=== PATIENT | male | born 1990 | race Native Hawaiian/Other Pacific Islander ===

== ENCOUNTER 2017-07-21 00:08 | Observation (INO) | payer OTHER ==
--- NOTE | 2017-07-21 00:33 | C.PDOC ---
History Of Present Illness 27 year old male presents to the ED with complaints of intermittent left sided pinching chest pain radiating to the left arm for four days. Pain is exacerbated slightly by movement. Patient describes initial onset was while driving and pain lasted for three hours. Other episodes since have been shorter except tonight, where pain has persisted for more than 5 hours, which prompted visit. He states his father at 32 years old of a heart attack and his father's sister at 45 years old also from heart attack. He denies previous episodes, sweats, nausea, vomiting, fever, or recent heavy lifting. Time Seen by Provider: 07/21/17 00:17 Chief Complaint (Nursing): Chest Pain History Per: Patient History/Exam Limitations: no limitations Onset/Duration Of Symptoms: Days (4 days ), Intermittent Episodes Current Symptoms Are (Timing): Still Present Quality: Other (pinching ) Associated Symptoms: denies: Nausea, Diaphoresis Modifying Factors: None Exacerbating Factors: Movement Alleviating Factors: None Recent travel outside of the [place]: No Past Medical History Reviewed: Historical Data, Nursing Documentation, Vital Signs Vital Signs: Last Vital Signs Temp 98.2 F 07/21/17 01:29 Pulse 93 H 07/21/17 02:01 Resp 20 07/21/17 02:01 BP 117/87 07/21/17 02:01 Pulse Ox 100 07/21/17 02:01 Family History: States: Unknown Family Hx - Social History Hx Alcohol Use: No Hx Substance Use: No - Immunization History Hx Tetanus Toxoid Vaccination: No Hx Influenza Vaccination: No Hx Pneumococcal Vaccination: No Review Of Systems Constitutional: Negative for: Fever, Chills Cardiovascular: Positive for: Chest Pain Respiratory: Negative for: Cough, Shortness of Breath Gastrointestinal: Negative for: Nausea, Vomiting, Abdominal Pain Musculoskeletal: Positive for: Arm Pain (left arm pain ) Neurological: Negative for: Weakness, Numbness Physical Exam - Physical Exam Appears: Non-toxic, No Acute Distress Skin: Warm, Dry Head: Atraumatic, Normacephalic Eye(s): bilateral: Normal Inspection, PERRL, EOMI Oral Mucosa: Moist Neck: Normal ROM, Supple Chest: Symmetrical, No Deformity, Tenderness (reproducible chest tenderness from left upper chest near nipple and lateral aspect toward axilla ) Cardiovascular: Rhythm Regular, No Murmur Respiratory: Normal Breath Sounds, No Rales, No Rhonchi, No Wheezing Gastrointestinal/Abdominal: Soft, No Tenderness, No Distention, No Guarding, No Rebound Extremity: Normal ROM, No Tenderness, No Pedal Edema, No Calf Tenderness, Capillary Refill (good capillary refill, less than two seconds ), No Deformity, No Swelling Neurological/Psych: Oriented x3, Normal Motor, Normal Sensation Gait: Steady ED Course And Treatment - Laboratory Results Result Diagrams: 07/21/17 01:05 07/21/17 01:05 O2 Sat by Pulse Oximetry: 100 (RA) Progress Note: EKG, CXR, and labs were ordered. Patient was given aspirin. Medical Decision Making Medical Decision Making: pt with intermittent left chest pain x 4 days, worse tonight, with family hx of early cardiac from mi (father 32). [address] Flores, will put on his service to [facility]. Disposition Discussed With : Kg Flores Doctor Will See Patient In The: Hospital - Disposition Disposition Time: 02:08 Condition: STABLE Forms: [facility] (Spanish) - Clinical Impression Clinical Impression: Chest pain - PA / RECREATION THERAPIST / Resident Statement MD/DO has reviewed & agrees with the documentation as recorded. - Scribe Statement The provider has reviewed the documentation as recorded by the Scribe Nikole Higuera All medical record entries made by the Scribe were at my direction and personally dictated by me. I have reviewed the chart and agree that the record accurately reflects my personal performance of the history, physical exam, medical decision making, and the department course for this patient. I have also personally directed, reviewed, and agree with the discharge instructions and disposition.
[2017-07-21] MEDS ORDERED: Aspirin 325 mg EC Tablets PO STA (00:49)
[2017-07-21] MEDS ORDERED: Aspirin 325 mg EC Tablets PO ONE (00:58)
[2017-07-21 01:16] LABS: CHLORIDE 101 mmol/L (98-107); POTASSIUM 3.9 mmol/L (3.6-5.2); SODIUM 141 mmol/L (132-148)
[2017-07-21 01:18] LABS: BILIRUBIN,TOTAL 0.6 mg/dL (0.2-1.3); GFR AFRICAN-AMERICAN > 60
[2017-07-21 01:19] LABS: ALB/GLOB RATIO 1.4 (1.0-2.1); ALKALINE PHOSPHATASE 57 U/L (38-126); ALT/SGPT 43 U/L (21-72); AST/SGOT 26 U/L (17-59); BLOOD UREA NITROGEN 14 mg/dL (9-20); CARBON DIOXIDE 23 mmol/L (22-30); GLUCOSE,RANDOM 86 mg/dL (75-110); TOTAL PROTEIN 7.9 g/dL (6.3-8.3)
[2017-07-21 01:20] LABS: CALCIUM 9.5 mg/dl (8.6-10.4)
[2017-07-21 01:21] LABS: BASO # 0.1 K/uL (0.0-0.2); BASO % 0.6 % (0.0-2.0); EOS # 0.3 K/uL (0.0-0.7); EOS % 2.7 % (0.0-4.0); LYMPH # 2.4 K/uL (1.0-4.3); LYMPH % 25.1 % (20.0-40.0); MEAN CELL VOLUME 81.8 fL (80.0-94.0); MEAN CORPUSCULAR HEMOGLOBIN 28.1 pg (27.0-31.0); MEAN CORPUSCULAR HGB CONC 34.3 g/dL (33.0-37.0); MEAN PLATELET VOLUME 8.8 fL (7.2-11.7); MONO # 0.6 K/uL (0.0-0.8); MONO % 6.1 % (0.0-10.0); RED CELL DISTRIBUTION WIDTH 13.4 % (11.5-14.5); WHITE BLOOD COUNT 9.5 K/uL (4.8-10.8)
--- NOTE | 2017-07-21 03:36 | CP.PCM.HP ---
<Yannick Kumari - Last Filed: 07/21/17 06:50> History of Present Illness - History of Present Illness History of Present Illness: PGY-1 H&P for Dr. Flores CC: Chest Pain This is a 27 year old male with no significant PMHx who presents complaining of left sided chest pain. Patient states that it began on Saturday while he was driving. It is intermittent but as of this morning, he has woken up with worsening chest pain. This prompted him to come in for evaluation. Patient states that the pain is described as a pressure like sensation that radiates to his left arm. Pain is about an 8/10 but reduced to a 5/10 with aspirin and nitroglycerin given in the ED. Patient states that meals and positional changes do not affect his pain. Patient also complaining of palpitations. PMHx: denies PSHx: denies Allergies: "skin allergies" Social: Denies tobacco, drugs, alcohol. 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 Family Hx: Father of ND at age 31. Aunt of ND at age 45. PMD: none Present on Admission - Present on Admission Any Indicators Present on Admission: No Review of Systems - Constitutional Constitutional: absent: Chills, Fever - EENT Eyes: absent: Change in Vision Nose/Mouth/Throat: absent: Nasal Congestion - Cardiovascular Cardiovascular: Chest Pain. absent: Diaphoresis, Dyspnea - Respiratory Respiratory: absent: Cough, Dyspnea, Wheezing - Gastrointestinal Gastrointestinal: absent: Abdominal Pain, Constipation, Diarrhea, Nausea, Vomiting - Genitourinary Genitourinary: absent: Dysuria, Hematuria - Musculoskeletal Musculoskeletal: absent: Back Pain - Neurological Neurological: absent: Dizziness, Headaches, Weakness - Psychiatric Psychiatric: Other (denies stressors) - Endocrine Endocrine: Palpitations Past Patient History - Past Social History Smoking Status: Never Smoked - PSYCHIATRIC Hx Substance Use: No - SURGICAL HISTORY Hx Surgeries: No Meds Allergies/Adverse Reactions: Allergies Allergy/AdvReac Type Severity Reaction Status Date / Time No Known Allergies Allergy Unverified 07/21/17 00:20 Physical Exam - Constitutional Appears: No Acute Distress - Head Exam Head Exam: ATRAUMATIC, NORMOCEPHALIC - Eye Exam Eye Exam: EOMI, PERRL - ENT Exam ENT Exam: Mucous Membranes Moist - Respiratory Exam Respiratory Exam: Clear to Auscultation Bilateral. absent: Rales, Rhonchi, Wheezes - Cardiovascular Exam Cardiovascular Exam: REGULAR RHYTHM, +S1, +S2 - GI/Abdominal Exam GI & Abdominal Exam: Normal Bowel Sounds, Soft. absent: Tenderness - Extremities Exam Extremities exam: Negative for: calf tenderness, pedal edema - Neurological Exam Neurological exam: Alert, CN II-XII Intact, Oriented x3 - Psychiatric Exam Psychiatric exam: Anxious - Skin Skin Exam: Dry, Intact, Normal Color, Warm Results - Vital Signs Recent Vital Signs: Last Vital Signs Temp 98.2 F 07/21/17 01:29 Pulse 81 07/21/17 02:29 Resp 18 07/21/17 02:29 BP 115/77 07/21/17 02:29 Pulse Ox 100 07/21/17 02:29 - Labs Result Diagrams: 07/21/17 01:05 07/21/17 01:05 Labs: Laboratory Results - last 24 hr 07/21/17 07/21/17 01:05 01:05 WBC 9.5 RBC 5.50 Hgb 15.5 Hct 45.0 MCV 81.8 MCH 28.1 MCHC 34.3 RDW 13.4 Plt Count 219 MPV 8.8 Neut % (Auto) 65.5 Lymph % (Auto) 25.1 [place] % (Auto) 6.1 Eos % (Auto) 2.7 Baso % (Auto) 0.6 Neut # 6.2 Lymph # 2.4 [place] # 0.6 Eos # 0.3 Baso # 0.1 Sodium 141 Potassium 3.9 Chloride 101 Carbon Dioxide 23 Anion Gap 20 BUN 14 Creatinine 0.7 L Est GFR ( Amer) > 60 Est GFR (Non-Af Amer) > 60 Random Glucose 86 Calcium 9.5 Total Bilirubin 0.6 AST 26 ALT 43 Alkaline Phosphatase 57 Troponin I < 0.0120 Total Protein 7.9 Albumin 4.7 Globulin 3.3 Albumin/Globulin Ratio 1.4 Assessment & Plan - Assessment and Plan (Free Text) Plan: Chest pain r/o ACS EKG and NINI negative for acute ND but EKG with diffuse RSR' complexes indicating RBB F/u EKG and NINI x2 ASA 325 and nitroglycein given in ED with questionable relief in pain ASA 81 mg PO daily Prophylactic Measure Pepcid 20 mg PO BID SCDs <Kg Flores - Last Filed: 07/21/17 19:11> Results - Vital Signs Recent Vital Signs: Last Vital Signs Temp 98.1 F 07/21/17 15:24 Pulse 71 07/21/17 15:24 Resp 19 07/21/17 15:24 BP 107/72 07/21/17 15:24 Pulse Ox 97 07/21/17 15:24 - Labs Result Diagrams: 07/21/17 01:05 07/21/17 01:05 Labs: Laboratory Results - last 24 hr 07/21/17 07/21/17 07/21/17 01:05 01:05 01:05 WBC 9.5 RBC 5.50 Hgb 15.5 Hct 45.0 MCV 81.8 MCH 28.1 MCHC 34.3 RDW 13.4 Plt Count 219 MPV 8.8 Neut % (Auto) 65.5 Lymph % (Auto) 25.1 [place] % (Auto) 6.1 Eos % (Auto) 2.7 Baso % (Auto) 0.6 Neut # 6.2 Lymph # 2.4 [place] # 0.6 Eos # 0.3 Baso # 0.1 ESR 1 Sodium 141 Potassium 3.9 Chloride 101 Carbon Dioxide 23 Anion Gap 20 BUN 14 Creatinine 0.7 L Est GFR ( Amer) > 60 Est GFR (Non-Af Amer) > 60 Random Glucose 86 Calcium 9.5 Total Bilirubin 0.6 AST 26 ALT 43 Alkaline Phosphatase 57 Total Creatine Kinase CK-MB (Mass) Troponin I < 0.0120 Troponin I, Quant C-React Prot High Sens Total Protein 7.9 Albumin 4.7 Globulin 3.3 Albumin/Globulin Ratio 1.4 Triglycerides Cholesterol LDL Cholesterol Direct HDL Cholesterol Free T4 TSH 3rd Generation Urine Opiates Screen Urine Methadone Screen Ur Barbiturates Screen Ur Phencyclidine Scrn Ur Amphetamines Screen U Benzodiazepines Scrn U Oth Cocaine Metabols U Cannabinoids Screen 07/21/17 07/21/17 07/21/17 03:36 05:49 05:49 WBC RBC Hgb Hct MCV MCH MCHC RDW Plt Count MPV Neut % (Auto) Lymph % (Auto) [place] % (Auto) Eos % (Auto) Baso % (Auto) Neut # Lymph # [place] # Eos # Baso # ESR Sodium Potassium Chloride Carbon Dioxide Anion Gap BUN Creatinine Est GFR ( Amer) Est GFR (Non-Af Amer) Random Glucose Calcium Total Bilirubin AST ALT Alkaline Phosphatase Total Creatine Kinase CK-MB (Mass) Troponin I Troponin I, Quant C-React Prot High Sens Total Protein Albumin Globulin Albumin/Globulin Ratio Triglycerides Cholesterol LDL Cholesterol Direct HDL Cholesterol Free T4 1.33 TSH 3rd Generation 3.81 Urine Opiates Screen Negative Urine Methadone Screen Negative Ur Barbiturates Screen Negative Ur Phencyclidine Scrn Negative Ur Amphetamines Screen Negative U Benzodiazepines Scrn Negative U Oth Cocaine Metabols Negative U Cannabinoids Screen Negative 07/21/17 07/21/17 07/21/17 06:30 13:35 14:00 WBC RBC Hgb Hct MCV MCH MCHC RDW Plt Count MPV Neut % (Auto) Lymph % (Auto) [place] % (Auto) Eos % (Auto) Baso % (Auto) Neut # Lymph # [place] # Eos # Baso # ESR Sodium Potassium Chloride Carbon Dioxide Anion Gap BUN Creatinine Est GFR ( Amer) Est GFR (Non-Af Amer) Random Glucose Calcium Total Bilirubin AST ALT Alkaline Phosphatase Total Creatine Kinase 83 73 CK-MB (Mass) 0.47 0.38 Troponin I Troponin I, Quant < 0.0120 < 0.0120 C-React Prot High Sens 0.51 L Total Protein Albumin Globulin Albumin/Globulin Ratio Triglycerides 50 Cholesterol 165 LDL Cholesterol Direct 116 HDL Cholesterol 49 Free T4 TSH 3rd Generation Urine Opiates Screen Urine Methadone Screen Ur Barbiturates Screen Ur Phencyclidine Scrn Ur Amphetamines Screen U Benzodiazepines Scrn U Oth Cocaine Metabols U Cannabinoids Screen Assessment & Plan - Date & Time Date: 07/21/17 (I have seen and examined the patient. I agree with the findings and plan of care as documented by Dr. Kumari. Patient with chest pain. Family history of ND, notably with his father dying of ND at age 31. Aspirin , nitro, and statin for now. Check for additional risk factors for CAD. Monitor for acute changes.) Time: 19:10 Attending/Attestation - Attestation I have personally seen and examined this patient.: Yes I have fully participated in the care of the patient.: Yes I have reviewed all pertinent clinical information: Yes
--- NOTE | 2017-07-21 09:02 | RAD ---
HISTORY: left chest pain COMPARISON: No prior. TECHNIQUE: Chest PA and lateral FINDINGS: LUNGS: No active pulmonary disease. PLEURA: No significant pleural effusion identified. No pneumothorax apparent. CARDIOVASCULAR: Normal. OSSEOUS STRUCTURES: No significant abnormalities. VISUALIZED UPPER ABDOMEN: Normal. OTHER FINDINGS: None. IMPRESSION: No active disease.
[2017-07-21 09:11] LABS: CHOLESTEROL 165 mg/dL (0-199)
--- NOTE | 2017-07-21 11:08 | CP.PCM.PN ---
<Consuelo Leal V - Last Filed: 07/21/17 13:53> Objective - Vital Signs/Intake and Output Vital Signs (last 24 hours): Temp Pulse Resp BP Pulse Ox 98.1 F 62 18 106/66 98 07/21/17 09:00 07/21/17 09:00 07/21/17 09:00 07/21/17 09:03 07/21/17 09:00 - Medications Medications: Current Medications Aspirin (Aspirin Chewable) 81 mg PO DAILY [facility] Last Admin: 07/21/17 13:30 Dose: 81 mg Famotidine (Pepcid) 20 mg PO BID [facility] Last Admin: 07/21/17 10:41 Dose: 20 mg Lisinopril (Zestril) 2.5 mg PO DAILY [facility] Last Admin: 07/21/17 10:41 Dose: 2.5 mg Metoprolol Tartrate (Lopressor) 12.5 mg PO BIDAC [facility] Rosuvastatin Calcium (Crestor) 2.5 mg PO HS [facility] - Labs Labs: 07/21/17 01:05 07/21/17 01:05 Attending/Attestation - Attestation I have personally seen and examined this patient.: Yes I have fully participated in the care of the patient.: Yes I have reviewed all pertinent clinical information, including history, physical exam and plan: Yes Notes (Text): Patient seen, examined, and case discussed with day time resident. Patient reports 4 day history of chest pain and associated palpitations. Patient reports each episodes happens for about an hour, left side of chest, feels like thumping. Initially he did not pay mind to it thought it would go away but it persisted. Patient denies drugs, denies social stressors. Patient reports the chest pain bothers him when he breathes in and when he leans forward. Patient has strong family hx father diagnosed with heart problems in twenties and mother in her 40s. Assessment/Plan 1) Chest pain Palpitations Family History of KS * Cardiology: Dr. Champion-->F/U recommendations * NINI X2: negative. Pending third NINI * T, Cholestrol: 165, LDL: 116, HDL: 49 * TSH: 3.81 and Free T4:1.22 * Chest xray (07/21/17): no active disease * Lopressor 12.5mg PO Q 12H (hold SBP<100 and HR<60) * pending echocardiogram * Aspirin 81mg PO daily * Lisinopril 2.5mg PO daily * Crestor 2.5mg POqHS * Patient's Family at age 30; diagnosed in 20s was also a smoker/alcohol user * Order for rapid flu (low suspicion for flu; possible myocarditis?) awaiting f/ u EKGs * pending hgablc 2) Prophylactic Measure * Pepcid 20 mg PO BID * Start Lovenox 40mg subqdaily * SCDs * Currently on observation <Edil Lisa - Last Filed: 07/21/17 14:16> Subjective - Date & Time of Evaluation Date of Evaluation: 07/21/17 Time of Evaluation: 11:08 - Subjective Subjective: Patient seen and examined at bedside; Patient again interviewed; states he has never had chest pain like this before but his parents have a significant cardiac history for in their 30's and was worried. Has not traveled recently; no cough/cold/flu like symptoms in the last 3 months; position and breath do not increase chest pain; patient still complaining of mild chest pain at rest but not as bad as it was before; nitro did not help the chest pain. Patient states that when he gets anxious/stressed he sometimes breaks out in this painful rash, that feels electrical in nature with raised bumps all over his body. does not have them at present but did yesterday when he came to the ED he states. Denies all other symptoms; denies fevers/chills, SINGER, Sob, abdominal pain, N/V/D, dysuria/freq/urg or lower extremity pain/swelling. Objective - Vital Signs/Intake and Output Vital Signs (last 24 hours): Temp Pulse Resp BP Pulse Ox 98.1 F 62 18 106/66 98 07/21/17 09:00 07/21/17 09:00 07/21/17 09:00 07/21/17 09:03 07/21/17 09:00 - Medications Medications: Current Medications Aspirin (Aspirin Chewable) 81 mg PO DAILY [facility] Famotidine (Pepcid) 20 mg PO BID [facility] Last Admin: 07/21/17 10:41 Dose: 20 mg Lisinopril (Zestril) 2.5 mg PO DAILY [facility] Last Admin: 07/21/17 10:41 Dose: 2.5 mg Metoprolol Tartrate (Lopressor) 12.5 mg PO BIDAC [facility] Rosuvastatin Calcium (Crestor) 2.5 mg PO HS [facility] - Labs Labs: 07/21/17 01:05 07/21/17 01:05 - Constitutional Appears: Well, Non-toxic - Head Exam Head Exam: ATRAUMATIC - Eye Exam Eye Exam: EOMI Pupil Exam: PERRL - ENT Exam ENT Exam: Mucous Membranes Moist - Neck Exam Neck Exam: Full ROM. absent: Lymphadenopathy - Respiratory Exam Respiratory Exam: Clear to Ausculation Bilateral, NORMAL BREATHING PATTERN - Cardiovascular Exam Cardiovascular Exam: REGULAR RHYTHM, +S1, +S2 - Rectal Exam Rectal Exam: NORMAL INSPECTION - Extremities Exam Extremities Exam: Full ROM. absent: Calf Tenderness - Back Exam Back Exam: NORMAL INSPECTION. absent: CVA tenderness (L), CVA tenderness (R) - Neurological Exam Neurological Exam: Alert, Awake, Normal Gait, Oriented x3 - Psychiatric Exam Psychiatric exam: Normal Affect, Normal Mood - Skin Skin Exam: Warm Assessment and Plan - Assessment and Plan (Free Text) Assessment: 27yo M admitted for acute onset chest pain Chest pain r/o ACS EKG and NINI negative for acute KS but EKG with diffuse RSR' complexes indicating RBBB F/u EKG and NINI x2; unchanged and negative awaiting repeat EKG ASA 81 mg PO daily; started CAITIE, B Cristine, and Statin for ACS prophylaxis Cardio Consult; Dr. Champion; appreciate recs Pending Echo; f/u results Prophylactic Measure Pepcid 20 mg PO BID SCDs awaiting HbA1C Lipid panel WNL Patient discussed with Dr. Elvis Lisa PGY2
[2017-07-21] MEDS: Enoxaparin 40 mg Syringe SC SCH (15:03)
[2017-07-21] MEDS ORDERED: Rosuvastatin Calcium 2.5 mg Tab PO SCH (22:00)
--- NOTE | 2017-07-21 22:45 | CP.PCM.CON ---
History of Present Illness - History of Present Illness History of Present Illness: Consultation for evaluatoin of chest pain HPI: 27-year-old male with past no significant past medical history presented with complaint of left-sided chest pain pain started on Saturday while he was driving intermittent in nature waxing and waning which prompted him to come to the emergency department describes the pain a pressure-like sensation radiating to the arm according to the patient improved after taking aspirin was somewhat positional in nature positive family history of premature CAD. No past medical or surgical history. Skin allergies. 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 Review of Systems - Constitutional Constitutional: As Per HPI - EENT Eyes: As Per HPI Nose/Mouth/Throat: As Per HPI - Cardiovascular Cardiovascular: As Per HPI - Respiratory Respiratory: As Per HPI - Gastrointestinal Gastrointestinal: As Per HPI - Genitourinary Genitourinary: As Per HPI - Reproductive: Male Reproductive:Male: As Per HPI - Musculoskeletal Musculoskeletal: As Per HPI - Integumentary Integumentary: As Per HPI - Neurological Neurological: As Per HPI - Psychiatric Psychiatric: As Per HPI, Anxiety - Endocrine Endocrine: As Per HPI - Hematologic/Lymphatic Hematologic: As Per HPI Past Patient History - Past Medical History & Family History Past Medical History?: No - Past Social History Smoking Status: Never Smoked - MUSCULOSKELETAL/RHEUMATOLOGICAL Hx Falls: No - PSYCHIATRIC Hx Substance Use: No - SURGICAL HISTORY Hx Surgeries: No Meds Allergies/Adverse Reactions: Allergies Allergy/AdvReac Type Severity Reaction Status Date / Time No Known Allergies Allergy Unverified 07/21/17 00:20 - Medications Medications: Current Medications Aspirin (Aspirin Chewable) 81 mg PO DAILY [facility] Last Admin: 07/21/17 13:30 Dose: 81 mg Enoxaparin Sodium (Lovenox) 40 mg SC DAILY [facility] Last Admin: 07/21/17 15:03 Dose: 40 mg Famotidine (Pepcid) 20 mg PO BID [facility] Last Admin: 07/21/17 17:29 Dose: 20 mg Lisinopril (Zestril) 2.5 mg PO DAILY [facility] Last Admin: 07/21/17 10:41 Dose: 2.5 mg Metoprolol Tartrate (Lopressor) 12.5 mg PO Q12H [facility] Last Admin: 07/21/17 15:03 Dose: 12.5 mg Rosuvastatin Calcium (Crestor) 2.5 mg PO HS [facility] Last Admin: 07/21/17 22:37 Dose: 2.5 mg Results - Vital Signs Recent Vital Signs: Last Vital Signs Temp 98.1 F 07/21/17 15:24 Pulse 71 07/21/17 15:24 Resp 19 07/21/17 15:24 BP 107/72 07/21/17 15:24 Pulse Ox 97 07/21/17 15:24 - Labs Result Diagrams: 07/22/17 07:06 07/22/17 07:06 Labs: Laboratory Results - last 24 hr 07/21/17 07/21/17 07/21/17 01:05 01:05 01:05 WBC 9.5 RBC 5.50 Hgb 15.5 Hct 45.0 MCV 81.8 MCH 28.1 MCHC 34.3 RDW 13.4 Plt Count 219 MPV 8.8 Neut % (Auto) 65.5 Lymph % (Auto) 25.1 [place] % (Auto) 6.1 Eos % (Auto) 2.7 Baso % (Auto) 0.6 Neut # 6.2 Lymph # 2.4 [place] # 0.6 Eos # 0.3 Baso # 0.1 ESR 1 Sodium 141 Potassium 3.9 Chloride 101 Carbon Dioxide 23 Anion Gap 20 BUN 14 Creatinine 0.7 L Est GFR ( Amer) > 60 Est GFR (Non-Af Amer) > 60 Random Glucose 86 Calcium 9.5 Total Bilirubin 0.6 AST 26 ALT 43 Alkaline Phosphatase 57 Total Creatine Kinase CK-MB (Mass) Troponin I < 0.0120 Troponin I, Quant C-React Prot High Sens Total Protein 7.9 Albumin 4.7 Globulin 3.3 Albumin/Globulin Ratio 1.4 Triglycerides Cholesterol LDL Cholesterol Direct HDL Cholesterol Free T4 TSH 3rd Generation Urine Opiates Screen Urine Methadone Screen Ur Barbiturates Screen Ur Phencyclidine Scrn Ur Amphetamines Screen U Benzodiazepines Scrn U Oth Cocaine Metabols U Cannabinoids Screen 07/21/17 07/21/17 07/21/17 03:36 05:49 05:49 WBC RBC Hgb Hct MCV MCH MCHC RDW Plt Count MPV Neut % (Auto) Lymph % (Auto) [place] % (Auto) Eos % (Auto) Baso % (Auto) Neut # Lymph # [place] # Eos # Baso # ESR Sodium Potassium Chloride Carbon Dioxide Anion Gap BUN Creatinine Est GFR ( Amer) Est GFR (Non-Af Amer) Random Glucose Calcium Total Bilirubin AST ALT Alkaline Phosphatase Total Creatine Kinase CK-MB (Mass) Troponin I Troponin I, Quant C-React Prot High Sens Total Protein Albumin Globulin Albumin/Globulin Ratio Triglycerides Cholesterol LDL Cholesterol Direct HDL Cholesterol Free T4 1.33 TSH 3rd Generation 3.81 Urine Opiates Screen Negative Urine Methadone Screen Negative Ur Barbiturates Screen Negative Ur Phencyclidine Scrn Negative Ur Amphetamines Screen Negative U Benzodiazepines Scrn Negative U Oth Cocaine Metabols Negative U Cannabinoids Screen Negative 07/21/17 07/21/17 07/21/17 06:30 13:35 14:00 WBC RBC Hgb Hct MCV MCH MCHC RDW Plt Count MPV Neut % (Auto) Lymph % (Auto) [place] % (Auto) Eos % (Auto) Baso % (Auto) Neut # Lymph # [place] # Eos # Baso # ESR Sodium Potassium Chloride Carbon Dioxide Anion Gap BUN Creatinine Est GFR ( Amer) Est GFR (Non-Af Amer) Random Glucose Calcium Total Bilirubin AST ALT Alkaline Phosphatase Total Creatine Kinase 83 73 CK-MB (Mass) 0.47 0.38 Troponin I Troponin I, Quant < 0.0120 < 0.0120 C-React Prot High Sens 0.51 L Total Protein Albumin Globulin Albumin/Globulin Ratio Triglycerides 50 Cholesterol 165 LDL Cholesterol Direct 116 HDL Cholesterol 49 Free T4 TSH 3rd Generation Urine Opiates Screen Urine Methadone Screen Ur Barbiturates Screen Ur Phencyclidine Scrn Ur Amphetamines Screen U Benzodiazepines Scrn U Oth Cocaine Metabols U Cannabinoids Screen Assessment & Plan (1) Chest pain Assessment and Plan: atypical +ve fam hx of premature CAD plan for eTT in am after NINI Status: Acute
[2017-07-22 01:18] VITALS: RESP 20; TEMP 97.7
[2017-07-22 07:29] LABS: ALB/GLOB RATIO 1.6 (1.0-2.1); ALKALINE PHOSPHATASE 50 U/L (38-126); ALT/SGPT 42 U/L (21-72); AST/SGOT 29 U/L (17-59); BILIRUBIN,TOTAL 0.8 mg/dL (0.2-1.3); BLOOD UREA NITROGEN 21 mg/dL (9-20); CALCIUM 9.8 mg/dl (8.6-10.4); CARBON DIOXIDE 25 mmol/L (22-30); CHLORIDE 101 mmol/L (98-107); GFR AFRICAN-AMERICAN > 60; GLUCOSE,RANDOM 87 mg/dL (75-110); MAGNESIUM 2.1 mg/dL (1.6-2.3); POTASSIUM 4.3 mmol/L (3.6-5.2); SODIUM 139 mmol/L (132-148); TOTAL PROTEIN 7.2 g/dL (6.3-8.3)
[2017-07-22 07:44] LABS: BASO % 0.4 % (0.0-2.0); EOS # 0.3 K/uL (0.0-0.7); EOS % 3.3 % (0.0-4.0); HEMATOCRIT 45.7 % (35.0-51.0); LYMPH # 3.3 K/uL (1.0-4.3); LYMPH % 38.6 % (20.0-40.0); MEAN CELL VOLUME 81.2 fL (80.0-94.0); MEAN CORPUSCULAR HGB CONC 34.5 g/dL (33.0-37.0); MEAN PLATELET VOLUME 8.9 fL (7.2-11.7); MONO # 0.6 K/uL (0.0-0.8); MONO % 7.2 % (0.0-10.0); NRBC % 0.1 % (0.0-2.0); RED CELL DISTRIBUTION WIDTH 13.3 % (11.5-14.5); WHITE BLOOD COUNT 8.5 K/uL (4.8-10.8)
[2017-07-22 08:33] VITALS: BP 99/66; O2SAT 95
--- NOTE | 2017-07-22 08:41 | CP.PCM.PN ---
Subjective - Date & Time of Evaluation Date of Evaluation: 07/22/17 Time of Evaluation: 08:00 - Subjective Subjective: Medicine Note for Dr. Kamaljit Wilhelm Patient was seen and examined at bedside. Patient has no acute complaints. Denied fever, chills, headache, chest pain, abdominal pain, n/v/d/c, or urinary symptoms. Objective - Vital Signs/Intake and Output Vital Signs (last 24 hours): Temp Pulse Resp BP Pulse Ox 97.7 F 69 20 99/66 L 95 07/22/17 08:00 07/22/17 08:00 07/22/17 08:00 07/22/17 08:00 07/22/17 08:00 - Medications Medications: Current Medications Aspirin (Aspirin Chewable) 81 mg PO DAILY [facility] Last Admin: 07/21/17 13:30 Dose: 81 mg Enoxaparin Sodium (Lovenox) 40 mg SC DAILY [facility] Last Admin: 07/21/17 15:03 Dose: 40 mg Famotidine (Pepcid) 20 mg PO BID [facility] Last Admin: 07/21/17 17:29 Dose: 20 mg Lisinopril (Zestril) 2.5 mg PO DAILY [facility] Last Admin: 07/21/17 10:41 Dose: 2.5 mg Metoprolol Tartrate (Lopressor) 12.5 mg PO Q12H [facility] Last Admin: 07/22/17 02:31 Dose: Not Given Rosuvastatin Calcium (Crestor) 2.5 mg PO HS [facility] Last Admin: 07/21/17 22:37 Dose: 2.5 mg - Labs Labs: 07/22/17 07:06 07/22/17 07:06 - Additional Findings Additional findings: - Constitutional Appears: Well, Non-toxic - Head Exam Head Exam: ATRAUMATIC - Eye Exam Eye Exam: EOMI Pupil Exam: PERRL - ENT Exam ENT Exam: Mucous Membranes Moist - Neck Exam Neck Exam: Full ROM. absent: Lymphadenopathy - Respiratory Exam Respiratory Exam: Clear to Ausculation Bilateral, NORMAL BREATHING PATTERN - Cardiovascular Exam Cardiovascular Exam: REGULAR RHYTHM, +S1, +S2 - Rectal Exam Rectal Exam: NORMAL INSPECTION - Extremities Exam Extremities Exam: Full ROM. absent: Calf Tenderness - Back Exam Back Exam: NORMAL INSPECTION. absent: CVA tenderness (L), CVA tenderness (R) - Neurological Exam Neurological Exam: Alert, Awake, Normal Gait, Oriented x3 - Psychiatric Exam Psychiatric exam: Normal Affect, Normal Mood - Skin Skin Exam: Warm Assessment and Plan - Assessment and Plan (Free Text) Plan: Chest pain Palpitations Family History of SD * Patient's Family at age 30; diagnosed in 20s was also a smoker/alcohol user * Cardiology: Dr. Champion * NINI X3: negative * EKG: diffuse RSR' complexes indicating RBBB * Chest xray (07/21/17): no active disease * T, Cholestrol: 165, LDL: 116, HDL: 49 * TSH: 3.81 and Free T4:1.22 * Rapid Flu - negative, UDS - negative * As per Dr. Champion, exercise stress test scheduled for today @ 2:30, patient kept NPO * Pending hgablc * Pending echocardiogram * Aspirin 81mg PO daily * Lisinopril 2.5mg PO daily * Crestor 2.5mg POqHS * Lopressor 12.5mg PO Q 12H (hold SBP<100 and HR<60) Prophylactic Measure * Pepcid 20 mg PO BID * Start Lovenox 40mg subqdaily * SCDs * Currently on observation DW Dr. Kamaljit Wilhelm, Gary SIMENTAL, PGY-1
--- NOTE | 2017-07-22 10:02 | CP.PCM.PN ---
<ADIA HAWLEY - Last Filed: 07/22/17 15:55> Subjective - Date & Time of Evaluation Date of Evaluation: 07/22/17 Time of Evaluation: 09:10 - Subjective Subjective: Adia Hawley DO PGY1 - Cardiology Progress Note for Dr. Champion Patient seen and examined at bedside. No events overnight. Patient reports continued chest pressure, 3/10 in severity, left mid chest, radiating to left lateral chest, though no change noted on electroencephalograph technologist. He denies dyspnea, palpitations, SINGER, dizziness. He says that he thinks the pain is related to stress. Objective - Vital Signs/Intake and Output Vital Signs (last 24 hours): Temp Pulse Resp BP Pulse Ox 97.7 F 57 L 20 99/66 L 95 07/22/17 08:00 07/22/17 08:00 07/22/17 08:00 07/22/17 08:00 07/22/17 08:00 - Medications Medications: Current Medications Aspirin (Aspirin Chewable) 81 mg PO DAILY [facility] Last Admin: 07/21/17 13:30 Dose: 81 mg Enoxaparin Sodium (Lovenox) 40 mg SC DAILY [facility] Last Admin: 07/21/17 15:03 Dose: 40 mg Famotidine (Pepcid) 20 mg PO BID [facility] Last Admin: 07/21/17 17:29 Dose: 20 mg Lisinopril (Zestril) 2.5 mg PO DAILY [facility] Last Admin: 07/21/17 10:41 Dose: 2.5 mg Metoprolol Tartrate (Lopressor) 12.5 mg PO Q12H [facility] Last Admin: 07/22/17 02:31 Dose: Not Given Rosuvastatin Calcium (Crestor) 2.5 mg PO HS [facility] Last Admin: 07/21/17 22:37 Dose: 2.5 mg - Labs Labs: 07/22/17 07:06 07/22/17 07:06 - Constitutional Appears: Non-toxic, No Acute Distress - Head Exam Head Exam: ATRAUMATIC, NORMOCEPHALIC - Eye Exam Eye Exam: EOMI, Normal appearance - ENT Exam ENT Exam: Mucous Membranes Moist - Neck Exam Neck Exam: Full ROM, Normal Inspection - Respiratory Exam Respiratory Exam: Clear to Ausculation Bilateral. absent: Rales, Rhonchi, Wheezes - Cardiovascular Exam Cardiovascular Exam: RRR, +S1, +S2 - GI/Abdominal Exam GI & Abdominal Exam: Soft. absent: Tenderness - Extremities Exam Extremities Exam: absent: Calf Tenderness, Pedal Edema - Neurological Exam Neurological Exam: Alert, Awake, Oriented x3 - Psychiatric Exam Psychiatric exam: Normal Affect, Normal Mood - Skin Skin Exam: Dry, Intact Assessment and Plan - Assessment and Plan (Free Text) Assessment: 27 yo M with history significant for early fatal NC in father, and early heart disease in mother, presented with chest pain Plan: 1. Chest pain, r/o NC - Patient has significant family history of heart disease in both parents diagnosed at an early age, and presented with typical chest pain - Troponins negative x3 - Lipid panel normal - Repeat EKG ordered, pending - Echo complete, normal - Regular stress test ordered, will complete today, further workup/management based on results of stress test - If stress test is negative, patient can be discharged to home with outpatient follow up in 1-2 weeks - Continue cardioprotective ASA, BB, ACEi, statin, pending further results - Continue to monitor in telemetry Patient discussed and reviewed with attending <Gentry Champion - Last Filed: 08/21/17 22:46> Objective - Vital Signs/Intake and Output Vital Signs (last 24 hours): Temp Pulse Resp BP Pulse Ox 97.7 F 86 20 99/66 L 95 07/22/17 08:00 07/22/17 12:00 07/22/17 08:00 07/22/17 08:00 07/22/17 08:00 - Labs Labs: 07/22/17 07:06 07/22/17 07:06 Attending/Attestation - Attestation I have personally seen and examined this patient.: Yes I have fully participated in the care of the patient.: Yes I have reviewed all pertinent clinical information, including history, physical exam and plan: Yes
[2017-07-22] MEDS: Enoxaparin 40 mg Syringe SC SCH (10:39)
[2017-07-22 12:18] VITALS: PULSE 86
[2017-07-22] MEDS ORDERED: Influenza Vaccine 60 mcg/0.5 mL SYR (4YR UP) IM ONE (14:11)
--- NOTE | 2017-07-22 15:27 | CP.PCM.DIS ---
<Yasmine Vega - Last Filed: 07/22/17 16:42> Provider - Provider Date of Admission: 07/21/17 02:07 Attending physician: Matthew Wilhelm MD Time Spent in preparation of Discharge (in minutes): 55 Hospital Course - Lab Results Lab Results: Most Recent Lab Values WBC 8.5 K/uL (4.8-10.8) 07/22/17 07:06 RBC 5.63 Mil/uL (4.40-5.90) 07/22/17 07:06 Hgb 15.8 g/dL (12.0-18.0) 07/22/17 07:06 Hct 45.7 % (35.0-51.0) 07/22/17 07:06 MCV 81.2 fL (80.0-94.0) 07/22/17 07:06 MCH 28.0 pg (27.0-31.0) 07/22/17 07:06 MCHC 34.5 g/dL (33.0-37.0) 07/22/17 07:06 RDW 13.3 % (11.5-14.5) 07/22/17 07:06 Plt Count 249 K/uL (130-400) 07/22/17 07:06 MPV 8.9 fL (7.2-11.7) 07/22/17 07:06 Neut % (Auto) 50.5 % (50.0-75.0) 07/22/17 07:06 Lymph % (Auto) 38.6 % (20.0-40.0) 07/22/17 07:06 [place] % (Auto) 7.2 % (0.0-10.0) 07/22/17 07:06 Eos % (Auto) 3.3 % (0.0-4.0) 07/22/17 07:06 Baso % (Auto) 0.4 % (0.0-2.0) 07/22/17 07:06 Neut # 4.3 K/uL (1.8-7.0) 07/22/17 07:06 Lymph # 3.3 K/uL (1.0-4.3) 07/22/17 07:06 [place] # 0.6 K/uL (0.0-0.8) 07/22/17 07:06 Eos # 0.3 K/uL (0.0-0.7) 07/22/17 07:06 Baso # 0.0 K/uL (0.0-0.2) 07/22/17 07:06 ESR 1 mm/hr (0-15) 07/21/17 01:05 Sodium 139 mmol/L (132-148) 07/22/17 07:06 Potassium 4.3 mmol/L (3.6-5.2) 07/22/17 07:06 Chloride 101 mmol/L (98-107) 07/22/17 07:06 Carbon Dioxide 25 mmol/L (22-30) 07/22/17 07:06 Anion Gap 17 (10-20) 07/22/17 07:06 BUN 21 mg/dL (9-20) H 07/22/17 07:06 Creatinine 1.0 MG/DL (0.8-1.5) 07/22/17 07:06 Est GFR ( Amer) > 60 07/22/17 07:06 Est GFR (Non-Af Amer) > 60 07/22/17 07:06 Random Glucose 87 mg/dL (75-110) 07/22/17 07:06 Hemoglobin A1c 5.5 % (4.2-6.5) 07/21/17 05:49 Calcium 9.8 mg/dl (8.6-10.4) 07/22/17 07:06 Magnesium 2.1 mg/dL (1.6-2.3) 07/22/17 07:06 Total Bilirubin 0.8 mg/dL (0.2-1.3) 07/22/17 07:06 AST 29 U/L (17-59) 07/22/17 07:06 ALT 42 U/L (21-72) 07/22/17 07:06 Alkaline Phosphatase 50 U/L (38-126) 07/22/17 07:06 Total Creatine Kinase 84 U/L (55-170) 07/22/17 00:33 CK-MB (Mass) 0.53 ng/mL (0.0-3.38) 07/22/17 00:33 Troponin I < 0.0120 ng/mL (0.00-0.120) 07/21/17 01:05 Troponin I, Quant < 0.0120 ng/mL (0.00-0.120) 07/22/17 00:33 C-React Prot High Sens 0.51 mg/L (1.00-3.00) L 07/21/17 14:00 Total Protein 7.2 g/dL (6.3-8.3) 07/22/17 07:06 Albumin 4.4 g/dL (3.5-5.0) 07/22/17 07:06 Globulin 2.8 gm/dL (2.2-3.9) 07/22/17 07:06 Albumin/Globulin Ratio 1.6 (1.0-2.1) 07/22/17 07:06 Triglycerides 50 mg/dL (0-149) 07/21/17 06:30 Cholesterol 165 mg/dL (0-199) 07/21/17 06:30 LDL Cholesterol Direct 116 mg/dL (0-129) 07/21/17 06:30 HDL Cholesterol 49 mg/dL (30-70) 07/21/17 06:30 Free T4 1.33 ng/dL (0.78-2.19) 07/21/17 05:49 TSH 3rd Generation 3.81 mIU/L (0.46-4.68) 07/21/17 05:49 Urine Opiates Screen Negative (NEGATIVE) 07/21/17 03:36 Urine Methadone Screen Negative (NEGATIVE) 07/21/17 03:36 Ur Barbiturates Screen Negative (NEGATIVE) 07/21/17 03:36 Ur Phencyclidine Scrn Negative (NEGATIVE) 07/21/17 03:36 Ur Amphetamines Screen Negative (NEGATIVE) 07/21/17 03:36 U Benzodiazepines Scrn Negative (NEGATIVE) 07/21/17 03:36 U Oth Cocaine Metabols Negative (NEGATIVE) 07/21/17 03:36 U Cannabinoids Screen Negative (NEGATIVE) 07/21/17 03:36 - Hospital Course Hospital Course: Upon Admission: CC: Chest Pain This is a 27 year old male with no significant PMHx who presents complaining of left sided chest pain. Patient states that it began on Saturday while he was driving. It is intermittent but as of this morning, he has woken up with worsening chest pain. This prompted him to come in for evaluation. Patient states that the pain is described as a pressure like sensation that radiates to his left arm. Pain is about an 8/10 but reduced to a 5/10 with aspirin and nitroglycerin given in the ED. Patient states that meals and positional changes do not affect his pain. Patient also complaining of palpitations. PMHx: denies PSHx: denies Allergies: "skin allergies" Social: Denies tobacco, drugs, alcohol. 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 Family Hx: Father of VA at age 31. Aunt of VA at age 45. PMD: none Throughout Hospital Course: Patient was admitted for chest pain with significant family history of VA at young ages. Patient had a normal ECHO, NORMAL STRESS TEST. Cleared for discharge from cardiology. Chest pain Palpitations Family History of VA * Patient's Family at age 30; diagnosed in 20s was also a smoker/alcohol user * Cardiology: Dr. Champion * NINI X3: negative * EKG: diffuse RSR' complexes indicating RBBB * Chest xray (07/21/17): no active disease * T, Cholestrol: 165, LDL: 116, HDL: 49 * TSH: 3.81 and Free T4:1.22 * Rapid Flu - negative, UDS - negative * As per Dr. Champion, exercise stress test scheduled for today @ 2:30, patient kept NPO * Pending hgablc * Pending echocardiogram * Aspirin 81mg PO daily * Lisinopril 2.5mg PO daily * Crestor 2.5mg POqHS * Lopressor 12.5mg PO Q 12H (hold SBP<100 and HR<60) Prophylactic Measure * Pepcid 20 mg PO BID * Start Lovenox 40mg subqdaily * SCDs * Currently on observation This is a brief summary of the patient's hospital course. Please review EMR for full record. Discharge Exam - Head Exam Head Exam: ATRAUMATIC, NORMOCEPHALIC - Additional Findings Additional findings: - Constitutional Appears: Well, Non-toxic - Head Exam Head Exam: ATRAUMATIC - Eye Exam Eye Exam: EOMI Pupil Exam: PERRL - ENT Exam ENT Exam: Mucous Membranes Moist - Neck Exam Neck Exam: Full ROM. absent: Lymphadenopathy - Respiratory Exam Respiratory Exam: Clear to Ausculation Bilateral, NORMAL BREATHING PATTERN - Cardiovascular Exam Cardiovascular Exam: REGULAR RHYTHM, +S1, +S2 - Rectal Exam Rectal Exam: NORMAL INSPECTION - Extremities Exam Extremities Exam: Full ROM. absent: Calf Tenderness - Back Exam Back Exam: NORMAL INSPECTION. absent: CVA tenderness (L), CVA tenderness (R) - Neurological Exam Neurological Exam: Alert, Awake, Normal Gait, Oriented x3 - Psychiatric Exam Psychiatric exam: Normal Affect, Normal Mood - Skin Skin Exam: Warm Discharge Plan - Follow Up Plan Condition: STABLE Disposition: HOME/ ROUTINE Instructions: Angina (DC), Chest Pain (DC) Additional Instructions: Patient is to follow up with the [facility] , who will be your primary care physician. Once you establish care, they will give you a referral for a mobile marketing specialist that you can closely follow up with. Please return to the ED if your symptoms worsen or return. Referrals: [facility] [Outside] <Matthew Wilhelm - Last Filed: 07/22/17 19:22> Provider - Provider Date of Admission: 07/21/17 02:07 Attending physician: Matthew Wilhelm MD Hospital Course - Lab Results Lab Results: Most Recent Lab Values WBC 8.5 K/uL (4.8-10.8) 07/22/17 07:06 RBC 5.63 Mil/uL (4.40-5.90) 07/22/17 07:06 Hgb 15.8 g/dL (12.0-18.0) 07/22/17 07:06 Hct 45.7 % (35.0-51.0) 07/22/17 07:06 MCV 81.2 fL (80.0-94.0) 07/22/17 07:06 MCH 28.0 pg (27.0-31.0) 07/22/17 07:06 MCHC 34.5 g/dL (33.0-37.0) 07/22/17 07:06 RDW 13.3 % (11.5-14.5) 07/22/17 07:06 Plt Count 249 K/uL (130-400) 07/22/17 07:06 MPV 8.9 fL (7.2-11.7) 07/22/17 07:06 Neut % (Auto) 50.5 % (50.0-75.0) 07/22/17 07:06 Lymph % (Auto) 38.6 % (20.0-40.0) 07/22/17 07:06 [place] % (Auto) 7.2 % (0.0-10.0) 07/22/17 07:06 Eos % (Auto) 3.3 % (0.0-4.0) 07/22/17 07:06 Baso % (Auto) 0.4 % (0.0-2.0) 07/22/17 07:06 Neut # 4.3 K/uL (1.8-7.0) 07/22/17 07:06 Lymph # 3.3 K/uL (1.0-4.3) 07/22/17 07:06 [place] # 0.6 K/uL (0.0-0.8) 07/22/17 07:06 Eos # 0.3 K/uL (0.0-0.7) 07/22/17 07:06 Baso # 0.0 K/uL (0.0-0.2) 07/22/17 07:06 ESR 1 mm/hr (0-15) 07/21/17 01:05 Sodium 139 mmol/L (132-148) 07/22/17 07:06 Potassium 4.3 mmol/L (3.6-5.2) 07/22/17 07:06 Chloride 101 mmol/L (98-107) 07/22/17 07:06 Carbon Dioxide 25 mmol/L (22-30) 07/22/17 07:06 Anion Gap 17 (10-20) 07/22/17 07:06 BUN 21 mg/dL (9-20) H 07/22/17 07:06 Creatinine 1.0 MG/DL (0.8-1.5) 07/22/17 07:06 Est GFR ( Amer) > 60 07/22/17 07:06 Est GFR (Non-Af Amer) > 60 07/22/17 07:06 Random Glucose 87 mg/dL (75-110) 07/22/17 07:06 Hemoglobin A1c 5.5 % (4.2-6.5) 07/21/17 05:49 Calcium 9.8 mg/dl (8.6-10.4) 07/22/17 07:06 Magnesium 2.1 mg/dL (1.6-2.3) 07/22/17 07:06 Total Bilirubin 0.8 mg/dL (0.2-1.3) 07/22/17 07:06 AST 29 U/L (17-59) 07/22/17 07:06 ALT 42 U/L (21-72) 07/22/17 07:06 Alkaline Phosphatase 50 U/L (38-126) 07/22/17 07:06 Total Creatine Kinase 84 U/L (55-170) 07/22/17 00:33 CK-MB (Mass) 0.53 ng/mL (0.0-3.38) 07/22/17 00:33 Troponin I < 0.0120 ng/mL (0.00-0.120) 07/21/17 01:05 Troponin I, Quant < 0.0120 ng/mL (0.00-0.120) 07/22/17 00:33 C-React Prot High Sens 0.51 mg/L (1.00-3.00) L 07/21/17 14:00 Total Protein 7.2 g/dL (6.3-8.3) 07/22/17 07:06 Albumin 4.4 g/dL (3.5-5.0) 07/22/17 07:06 Globulin 2.8 gm/dL (2.2-3.9) 07/22/17 07:06 Albumin/Globulin Ratio 1.6 (1.0-2.1) 07/22/17 07:06 Triglycerides 50 mg/dL (0-149) 07/21/17 06:30 Cholesterol 165 mg/dL (0-199) 07/21/17 06:30 LDL Cholesterol Direct 116 mg/dL (0-129) 07/21/17 06:30 HDL Cholesterol 49 mg/dL (30-70) 07/21/17 06:30 Free T4 1.33 ng/dL (0.78-2.19) 07/21/17 05:49 TSH 3rd Generation 3.81 mIU/L (0.46-4.68) 07/21/17 05:49 Urine Opiates Screen Negative (NEGATIVE) 07/21/17 03:36 Urine Methadone Screen Negative (NEGATIVE) 07/21/17 03:36 Ur Barbiturates Screen Negative (NEGATIVE) 07/21/17 03:36 Ur Phencyclidine Scrn Negative (NEGATIVE) 07/21/17 03:36 Ur Amphetamines Screen Negative (NEGATIVE) 07/21/17 03:36 U Benzodiazepines Scrn Negative (NEGATIVE) 07/21/17 03:36 U Oth Cocaine Metabols Negative (NEGATIVE) 07/21/17 03:36 U Cannabinoids Screen Negative (NEGATIVE) 07/21/17 03:36 Attending/Attestation - Attestation I have personally seen and examined this patient.: Yes I have fully participated in the care of the patient.: Yes I have reviewed all pertinent clinical information, including history, physical exam and plan: Yes Notes (Text): 07/22/17 19:13 Patient was seen and examined shortly after resident. Exam, assessment and plan, and discharge plan were thoroughly gone over with the resident. Matthew Wilhelm D.O.
--- NOTE | 2017-07-23 17:55 | CARD ---
APPROVED REPORT EKG Measurement Heart [id number] [place] 140P70 [id number] <Conclusion> Normal sinus rhythm Possible Left atrial enlargement Rightward axis Incomplete right bundle branch block Borderline ECG
--- NOTE | 2017-07-23 17:55 | CARD ---
APPROVED REPORT EXAM: Two-dimensional and M-mode echocardiogram with Doppler and color Doppler. Other Information Quality : GoodRhythm : NSR INDICATION Chest Pain 2D DIMENSIONS IVSd0.8 (0.7-1.1cm)LVDd3.8 (3.9-5.9cm) PWd0.8 (0.7-1.1cm)LVDs2.8 (2.5-4.0cm) FS (%) 27.1 %LVEF (%)53.5 (>50%) M-Mode DIMENSIONS Left Atrium (MM)2.09 (2.5-4.0cm)Aortic Root3.28 (2.2-3.7cm) Aortic Cusp Exc.1.66 (1.5-2.0cm) Mitral Valve MV E Dlvvpjei20.0cm/sMV A Khtjzctu76.1cm/sE/A ratio1.4 TDI E/Lateral E'0.0E/Medial E'0.0 Tricuspid Valve TR Peak Cdjgevkm180vp/sTR Peak Gr.[id number] LEFT VENTRICLE The left ventricle is normal size. There is normal left ventricular wall thickness. The left ventricular function is normal. The left ventricular ejection fraction is within the normal range. There is normal LV segmental wall motion. The left ventricular diastolic function is normal. No left ventricle thrombus noted on this study. There is no ventricular septal defect visualized. There is no left ventricular aneurysm. There is no mass noted in the left ventricle. RIGHT VENTRICLE The right ventricle is normal size. There is normal right ventricular wall thickness. The right ventricular systolic function is normal. ATRIA The left atrium size is normal. The right atrium size is normal. The interatrial septum is intact with no evidence for an atrial septal defect. AORTIC VALVE The aortic valve is normal in structure. No aortic regurgitation is present. There is no aortic valvular stenosis. There is no aortic valvular vegetation. MITRAL VALVE The mitral valve is normal in structure. A moderate mitral valve prolapse is present. There is no mitral valve stenosis. There is no mitral valve regurgitation noted. TRICUSPID VALVE The tricuspid valve is normal in structure. There is no tricuspid valve regurgitation noted. PULMONIC VALVE The pulmonary valve is normal in structure. There is no pulmonic valvular regurgitation. GREAT VESSELS The aortic root is normal in size. The ascending aorta is normal in size. PERICARDIAL EFFUSION There is no pericardial effusion. <Conclusion> A moderate mitral valve prolapse is present. pansystolic. otherwise normal study.
--- NOTE | 2017-07-23 17:55 | CARD ---
APPROVED REPORT EKG Measurement Heart [id number] [place] 156P67 [id number] <Conclusion> Normal sinus rhythm with sinus arrhythmia Rightward axis Borderline ECG
--- NOTE | 2017-07-23 17:56 | CARD ---
APPROVED REPORT EKG Measurement Heart [id number] [place] 144P76 [id number] <Conclusion> Normal sinus rhythm Possible Left atrial enlargement Incomplete right bundle branch block Borderline ECG
--- NOTE | 2017-07-23 17:56 | CARD ---
APPROVED REPORT EKG Measurement Heart [id number] [place] 148P60 [id number] <Conclusion> Poor data quality, interpretation may be adversely affected Normal sinus rhythm with sinus arrhythmia Normal ECG
--- NOTE | 2017-07-23 17:56 | CARD ---
APPROVED REPORT EKG Measurement Heart [id number] [place] 144P72 [id number] <Conclusion> Normal sinus rhythm Possible Left atrial enlargement Incomplete right bundle branch block Borderline ECG
--- NOTE | 2017-07-26 20:01 | CARD ---
APPROVED REPORT Protocol: AYAAN Test Type: Treadmill Stress Test Test Indications: CHEST PAIN Medications: LIST SCAN Medical History: CHEST PAIN Target HR: 193 bpm Resting ECG: left ventricular hypertrophy Resting Heart Rate: 98 bpm Resting Blood Pressure: 90/58mmHg submaximum (85%): 164 bpm TEST SUMMARY [id number]..1.0./.0. PRETESTWARM-UP123:[id number]/58.0. EXERCISESTAGE 103:[id number]/60.0. EXERCISESTAGE 203:[id number]/60.0. EXERCISESTAGE 303:[id number]/60.1. EXERCISESTAGE 401:[id number]/60.0. [id number]/60.0. POST EXERCISE Reason for Termination: Fatigue Target HR: No Max HR: 162 bpm 83% of Maximum Predicted HR: 193 bpm Exercise duration: 10:05 min:sec, 4 Stage Exercise capacity: 13.4METs Max Blood Pressure: 134/60mmHg Blood Pressure response to exercise: normal resting BP - appropriate response Heart Rate response to exercise: appropriate Chest Pain: No, none Angina index: 0 Arrhythmia: No, none ST Change: No, none Deviation: 0 mm INTERPRETATION Stress EKG Conclusion: - Normal exercise treadmill stress test with no evidence of ischemia noted. - Good exercise tolerance
== END 2017-07-22 19:18 | disposition home or self-care (01) ==
LOC: C.ER 00:08 → C.9E 02:07 → C.5S 08:50
PROVIDERS: ADMIT Family Medicine; ATTEND Family Medicine
DX: R07.89 Other chest pain (principal); Z79.82 Long term (current) use of aspirin; Z82.49 Family history of ischemic heart disease and other diseases of the circulatory system; R00.2 Palpitations
CPT/HCPCS: 36415; 71020; 80053; 80061; 80324; 80345; 80346; 80349; 80353; 80358; 80361; 83036; 83735; 83992; 84439; 84443; 84484; 85025; 85651; 86140; 93005; 93017; 93306; 99285; G0378; J1650